=== PATIENT | male | born 1985 | race Caucasian/White ===

== ENCOUNTER → 2024-12-16 | Outpatient (CLI) | payer OTHER | LOC: M RAD 09:35 | PROVIDERS: ATTEND Nurse Practitioner Family | DX: M54.2 Cervicalgia (principal) ==

== ENCOUNTER 2025-03-03 23:01 | Emergency (ER) | payer OTHER ==
[~2025-03-03] VITALS: Ht 182.9 cm; Wt 100.0 kg
[2025-03-03] MEDS: IPRATROPIUM 0.5 MG/ALBUTEROL 2.5 MG INH SOL UD 3 ML NEB ONE (23:40)
[2025-03-04] MEDS ORDERED: VENTAER INH (00:45)
[2025-03-04] MEDS ORDERED: AMOX500T PO (00:45)
[2025-03-04] MEDS ORDERED: BENZ200C70 PO (00:45)
[2025-03-04 00:51] VITALS: BP 121/75; TEMP 98; O2SAT 98
== END 2025-03-04 00:56 | disposition home or self-care (01) ==
LOC: M ED 23:01
DX: J09.X1 Influenza due to identified novel influenza A virus with pneumonia (principal); Z79.2 Long term (current) use of antibiotics; Z79.51 Long term (current) use of inhaled steroids; Z79.899 Other long term (current) drug therapy